=== PATIENT | female | born 1995 | race American Indian/Alaskan Native ===

== ENCOUNTER 2021-09-25 13:43 | Emergency (ER) | payer MEDICAID ==
[2021-09-25] MEDS ORDERED: IBUPROFEN 800 MG TAB PO ONE (16:40)
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
[2021-09-25 17:04] VITALS: BP 135/92
== END 2021-09-25 18:07 | disposition home or self-care (01) ==
LOC: ED 13:43
DX: M79.18 Myalgia, other site (principal); R51.9 Headache, unspecified; V89.2XXA Person injured in unspecified motor-vehicle accident, traffic, initial encounter; Y93.89 Activity, other specified; Y92.89 Other specified places as the place of occurrence of the external cause; Y99.8 Other external cause status
CPT/HCPCS: 99282